=== PATIENT | female | born 1940 | race Caucasian/White ===

== ENCOUNTER → 2017-03-24 | Outpatient (CLI) | payer MEDICARE, OTHER ==
[2017-03-24 19:45] LABS: Hemoglobin 15.3 g/dL (11.5-16.0)
[2017-03-24 20:14] LABS: Albumin, Blood 3.9 g/dL (3.4-5.0); Anion Gap 7 mmol/L (6-16); Blood Urea Nitrogen 22 mg/dL (8-24); Bun/Creatinine Ratio 16.2 (12.0-20.0); CO2, Blood 26 mmol/L (21-32); Chloride, Blood 106 mmol/L (98-108); Creatinine, Blood 1.36 mg/dL (0.40-1.00); Glomerular Filtration Rate 40 (60-); Glucose, Blood 92 mg/dL (70-99); Phosphorus, Blood 3.6 mg/dL (2.5-4.9); Potassium, Blood 4.6 mmol/L (3.5-5.5); Sodium, Blood 139 mmol/L (136-145)
== END ==
LOC: LAB SHORT 14:27
PROVIDERS: Internal Medicine
DX: N18.3 Chronic kidney disease, stage 3 (moderate) (principal); D63.1 Anemia in chronic kidney disease
CPT/HCPCS: 36415; 80069; 85014; 85018

== ENCOUNTER 2018-02-03 13:06 | Emergency (ER) | payer MEDICARE, OTHER ==
[~2018-02-03] VITALS: Ht 162.6 cm; Wt 77.1 kg
[2018-02-03] MEDS ORDERED: CITA20 PO (13:42)
[2018-02-03] MEDS ORDERED: LEVSOD50 PO (13:42)
[2018-02-03] MEDS ORDERED: ATEN25 PO (13:42)
[2018-02-03] MEDS ORDERED: Augmentin 875-1 EACH PO (13:59)
== END 2018-02-03 14:11 | disposition home or self-care (01) ==
LOC: ER 13:06
DX: S61.451A Open bite of right hand, initial encounter (principal); L03.113 Cellulitis of right upper limb; W54.0XXA Bitten by dog, initial encounter; Z79.899 Other long term (current) drug therapy; E03.9 Hypothyroidism, unspecified
CPT/HCPCS: 90471; 90714; 99283

== ENCOUNTER → 2018-07-08 | Outpatient (CLI) | payer MEDICARE, OTHER ==
[~2018-07-08] MED LIST: ATEN25 PO; Augmentin 875-1 EACH PO; CITA20 PO; LEVSOD50 PO
[2018-07-09 09:59] LABS: Hematocrit 46.5 % (33.0-51.0)
[2018-07-09 10:03] LABS: Albumin, Blood 4.4 g/dL (3.4-5.0); Anion Gap 4 mmol/L (6-16); Blood Urea Nitrogen 30 mg/dL (8-24); Bun/Creatinine Ratio 24.6 (12.0-20.0); CO2, Blood 30 mmol/L (21-32); Calcium, Blood 9.2 mg/dL (8.5-10.1); Chloride, Blood 105 mmol/L (98-108); Creatinine, Blood 1.22 mg/dL (0.40-1.00); Glomerular Filtration Rate 46 (60-); Glucose, Blood 84 mg/dL (70-99); Phosphorus, Blood 3.6 mg/dL (2.5-4.9); Sodium, Blood 139 mmol/L (136-145)
[2018-07-09 10:05] LABS: Free Thyroxine 0.87 ng/dL (0.70-1.60)
[2018-07-09 10:08] LABS: Thyroid Stimulating Hormone 2.27 uIU/mL (0.360-4.800)
== END | disposition home or self-care (01) ==
LOC: LAB SHORT 15:49 → LAB 15:49 → EDSTATUS 11-04 15:15 → LAB FUT 11-04 15:15
PROVIDERS: Hospitalist; Internal Medicine
DX: E03.9 Hypothyroidism, unspecified (principal); N18.3 Chronic kidney disease, stage 3 (moderate); D63.1 Anemia in chronic kidney disease
CPT/HCPCS: 80069; 84439; 84443; 85014; 85018

== ENCOUNTER 2021-01-18 12:24 | Day surgery (SDC) | payer MEDICARE, OTHER ==
[~2021-01-18] VITALS: Ht 160 cm; Wt 79.4 kg
[2021-01-18] MEDS ORDERED: THERA-D2000 UNIT PO (13:30)
--- NOTE | 2021-01-18 13:39 | NUR ---
Ambulatory in [facility] warming gown applied. Patient states colon prep results clear.Lungs clear T/O to Auscultation. History, Chart, Medications and Allergies reviewed before start of procedure.Patient confirms NPO status and agrees with scheduled surgery. Pre-Op teaching done. Pt verbalizes understanding. Patient States Post-Procedure ride home has been arranged.
--- NOTE | 2021-01-18 14:40 | NUR ---
01/18/21 1440 JustoWendy wick Gale History, Chart, Medications and Allergies reviewed before start of procedure. Patient confirms NPO status and agrees with scheduled surgery. 3-LEAD EKG REVIEWED WITH PHYSICIAN PRIOR TO START OF PROCEDURE. MONITOR INTACT WITH CONTINUOUS PULSE OXIMETRY AND INTERMITTENT BP. PATIENT DETERMINED TO BE ASA APPROPRIATE FOR PROPOFOL SEDATION PRIOR TO START OF PROCEDURE BY
--- NOTE | 2021-01-18 15:48 | NUR ---
Patient up to Ambulate independently. Gait steady. Discharge instructions reviewed with patient. Patient verbalizes understanding. Copy given to patient to take home. Patient States Post-Procedure ride home has been arranged. Discharged via wheelchair to private car for ride home. ALL BELONGINGS RETURNED TO PATIENT.
== END 2021-01-19 23:00 | disposition home or self-care (01) ==
LOC: ORSCMMR 12:24 → ORD 14:15 → ORSCMMR 14:15
PROC: 0DBH8ZX Excision of Cecum, Via Natural or Artificial Opening Endoscopic, Diagnostic (ICD-10-PCS; principal; 2021-01-19)
DX: Z12.11 Encounter for screening for malignant neoplasm of colon (principal); D12.0 Benign neoplasm of cecum; K21.9 Gastro-esophageal reflux disease without esophagitis; N18.32 Chronic kidney disease, stage 3b; K57.30 Diverticulosis of large intestine without perforation or abscess without bleeding; E03.9 Hypothyroidism, unspecified; E66.9 Obesity, unspecified; Z68.32 Body mass index [BMI] 32.0-32.9, adult; Z79.899 Other long term (current) drug therapy
CPT/HCPCS: 88305; J2704; J7120

== ENCOUNTER → 2021-08-21 | Outpatient (CLI) | payer MEDICARE, OTHER ==
[~2021-08-21] MED LIST changes: +THERA-D2000 UNIT PO
[2021-08-21 20:01] LABS: Free Thyroxine 0.79 ng/dL (0.70-1.60); Thyroid Stimulating Hormone 2.72 uIU/mL (0.360-4.800)
== END | disposition home or self-care (01) ==
LOC: LAB SHORT 14:40 → LAB 14:40
PROVIDERS: Hospitalist
DX: E03.9 Hypothyroidism, unspecified (principal)
CPT/HCPCS: 84439; 84443

== ENCOUNTER 2021-11-24 11:44 | Emergency (ER) | payer MEDICARE, OTHER ==
[~2021-11-24] VITALS: Ht 157.5 cm; Wt 77.1 kg
[2021-11-24 12:35] LABS: BASOPHILS ABSOLUTE AUTO 0.05 K/mm3 (0.00-0.23); BASOPHILS PERCENT AUTO 1 % (0-2); EOSINOPHILS PERCENT AUTO 5 % (0-6); Hematocrit 44.2 % (33.0-51.0); Hemoglobin 14.6 g/dL (11.5-16.0); IMMATURE GRAN ABSOLUTE AUTO 0.01 K/mm3 (0.00-0.10); IMMATURE GRAN PERCENT AUTO 0 % (0-1); LYMPHOCYTES ABSOLUTE AUTO 1.78 K/mm3 (0.84-5.20); LYMPHOCYTES PERCENT AUTO 27 % (21-46); MONOCYTES ABSOLUTE AUTO 0.39 K/mm3 (0.16-1.47); MONOCYTES PERCENT AUTO 6 % (4-13); Mean Corpuscular HGB 32.6 pg (26.0-34.0); Mean Corpuscular Volume 99 fL (80-100); Mean Platelet Volume 10.1 fL (9.1-12.4); NEUTROPHILS ABSOLUTE AUTO 4.18 K/mm3 (1.96-9.15); NEUTROPHILS PERCENT AUTO 62 % (41-73); Platelet Count 178 K/mm3 (150-400); RDW Coefficient Variation 13.8 % (11.7-14.2); Red Blood Cell Count 4.48 M/mm3 (3.80-5.20); White Blood Cell Count 6.71 K/mm3 (4.00-11.30)
[2021-11-24 12:56] LABS: Albumin, Blood 3.6 g/dL (3.4-5.0); Albumin/Globulin Ratio 0.9 (0.8-1.8); Bilirubin, Total 0.4 mg/dL (0.1-1.0); Bun/Creatinine Ratio 17.2 (12.0-20.0); Calcium, Blood 8.9 mg/dL (8.5-10.1); Creatinine, Blood 1.51 mg/dL (0.40-1.00); Globulin, Blood 4.1 g/dL (2.2-4.0); Potassium, Blood 4.3 mmol/L (3.5-5.5); Total Protein, Blood 7.7 g/dL (6.4-8.2)
== END 2021-11-24 14:40 | disposition home or self-care (01) ==
LOC: ER 11:44
PROVIDERS: Emergency Medicine
DX: R07.9 Chest pain, unspecified (principal); M79.602 Pain in left arm; M79.601 Pain in right arm; Z79.899 Other long term (current) drug therapy
CPT/HCPCS: 36415; 71046; 80053; 84484; 85025; 93005; 93010; 99284-25

== ENCOUNTER 2021-12-29 08:56 | Emergency (ER) | payer MEDICARE, OTHER ==
[~2021-12-29] VITALS: Ht 157.5 cm; Wt 79.4 kg
[2021-12-29] MEDS ORDERED: VALA500 PO (11:36)
[2021-12-29] MEDS ORDERED: DOXY100 PO (11:36)
== END 2021-12-29 12:05 | disposition home or self-care (01) ==
LOC: ER 08:56
DX: J34.89 Other specified disorders of nose and nasal sinuses (principal); Z79.899 Other long term (current) drug therapy
CPT/HCPCS: A9270

== ENCOUNTER → 2022-01-17 | Outpatient (CLI) | payer MEDICARE, OTHER ==
[~2022-01-17] MED LIST changes: +DOXY100 PO; +VALA500 PO
== END | disposition home or self-care (01) ==
LOC: LAB SHORT 15:08
DX: R30.0 Dysuria (principal)
CPT/HCPCS: 87077; 87086; 87186

== ENCOUNTER 2022-06-18 09:23 | Day surgery (SDC) | payer MEDICARE, OTHER ==
[~2022-06-18] VITALS: Ht 160 cm; Wt 79.6 kg
[~2022-06-18 09:23] MED LIST changes: +AMOCLA875 PO; +CITALOPRAM HBR10 MG PO
--- NOTE | 2022-06-18 11:36 | NUR ---
06/18/22 1136 Jennifer Ferraro TETRACAINE TO RIGHT EYE AT 1134 PLEDGET TO RIGHT EYE AT 1135 BY [facility].NHL
[2022-06-18 12:52] VITALS: BP 115/83
--- NOTE | 2022-06-18 13:10 | NUR ---
06/18/22 1310 Onofre Carson IV REMOVED. SITE WNL.
[2022-06-19] MEDS ORDERED: EUTHYROX50 MCG PO (11:26)
== END 2022-06-18 13:07 | disposition home or self-care (01) ==
LOC: ORSCSDS 09:23
PROVIDERS: Student in an Organized Health Care Education/Training Program
PROC: 08DK3ZZ Extraction of Left Lens, Percutaneous Approach (ICD-10-PCS; principal; 2022-06-18 11:00)
DX: H25.13 Age-related nuclear cataract, bilateral (principal); I48.91 Unspecified atrial fibrillation; I12.9 Hypertensive chronic kidney disease with stage 1 through stage 4 chronic kidney disease, or unspecified chronic kidney disease; N18.32 Chronic kidney disease, stage 3b; Z79.899 Other long term (current) drug therapy
CPT/HCPCS: J2250; J3010; J7040; V2632

== ENCOUNTER 2022-06-25 08:14 | Day surgery (SDC) | payer MEDICARE, OTHER ==
[~2022-06-25] VITALS: Ht 160 cm; Wt 81.4 kg
[~2022-06-25 08:14] MED LIST changes: +EUTHYROX50 MCG PO
--- NOTE | 2022-06-25 09:27 | NUR ---
06/25/22 0927 Razia Lara [id number], SUJEY [id number]
[2022-06-25 10:33] VITALS: BP 126/74
--- NOTE | 2022-06-25 10:52 | NUR ---
06/25/22 1052 Onofre Carson IV REMOVED AT 1030, IV CANULA INTACT. SITE WNL. PT TOLERATED PROCEDURE WELL. PT IN AFIB, WHICH PT STATES HER PCP IS AWARE OF AND IS AN ONGOING CONDITION. DR. NOVOA AWARE OF AFIB, PER CIRCULATING NURSE REPORT.
== END 2022-06-25 10:52 | disposition home or self-care (01) ==
LOC: ORSCSDS 08:14
PROVIDERS: Student in an Organized Health Care Education/Training Program
PROC: 08DK3ZZ Extraction of Left Lens, Percutaneous Approach (ICD-10-PCS; principal; 2022-06-25 10:00)
DX: H25.12 Age-related nuclear cataract, left eye (principal); Z96.1 Presence of intraocular lens; N18.32 Chronic kidney disease, stage 3b; E03.9 Hypothyroidism, unspecified; K21.9 Gastro-esophageal reflux disease without esophagitis; H44.23 Degenerative myopia, bilateral; Z79.899 Other long term (current) drug therapy
CPT/HCPCS: J2250; J3010; J7040; V2632

== ENCOUNTER → 2023-07-28 | Outpatient (CLI) | payer MEDICARE, OTHER ==
[2023-07-28 14:49] LABS: CHOL/HDL RATIO 2.6; Cholesterol 155 mg/dL (50-200); HDL Cholesterol 59 mg/dL (>39); LDL/HDL RATIO 1.3; Low Density Lipoprotein Chol 76 mg/dL (0-110); Triglycerides 98 mg/dL (30-160); Very Low Density Lipoprot Chol 19 mg/dL (6-32)
== END ==
LOC: LAB SHORT 11:40 → LAB 11:40
PROVIDERS: Hospitalist
DX: I12.9 Hypertensive chronic kidney disease with stage 1 through stage 4 chronic kidney disease, or unspecified chronic kidney disease (principal); N18.9 Chronic kidney disease, unspecified
CPT/HCPCS: 80061